=== PATIENT | male | born 1960 | race Caucasian/White ===

== ENCOUNTER → 2017-08-07 07:02 | Outpatient (CLI) | payer BC, SELFPAY ==
--- NOTE | 2017-08-07 16:48 | STRESSREP ---
Stress Test Report Exercise myocardial perfusion stress test. 57-year-old man with a history of chest pain. Stress protocol: The resting EKG demonstrates sinus bradycardia with a rate of 59 bpm. The resting blood pressure is 102/70 mmHg. The patient exercised according to regular Alek protocol for total duration of 10 minutes completing 1 minute into stage IV of the Alek protocol. The maximum heart rate attained was 146 bpm which was 89% of maximum predicted heart rate the maximum workload attained was 11.7 metabolic equivalents. The patient maintained sinus rhythm throughout the recording. At rest there were no ST or T-wave changes noted suggest ischemia at peak exercise no ST or T-wave changes were noted suggest ischemia. No clinical angina was noted the test was terminated due to leg fatigue the resting blood pressure is 102/70 mmHg with a peak blood pressure 134/72 mmHg. Myocardial perfusion protocol. 14.1 mCi of technetium 99m sestamibi was injected at rest. The patient exercised according to regular Alek protocol for 10 minutes attaining 89% of maximum predicted heart rate to work load of 11.7 metabolic equivalents at peak exercise 43.7 mCi of technetium 99m sestamibi was injected stress images were obtained stress and rest images were reconstructed and compared in the short axis vertical and horizontal long axis. Gated images were also obtained pre- Perfusion SPECT analysis. Review of the stress images demonstrate normal uptake of tracer noted in all areas of the myocardium. The resting images similarly demonstrate normal uptake of tracer noted in all areas of the myocardium. No areas of reversibility are noted suggest ischemia no previous infarct is noted. Gated SPECT analysis: The gated ejection fraction is noted to be 62%. Conclusion: Normal exercise myocardial perfusion stress test at a high workload. No clinical angina noted. No arrhythmias noted. Preserved ejection fraction.
== END ==
DX: R07.89 Other chest pain (principal)
CPT/HCPCS: 78452; 93017; A9500; A4216; J2405

== ENCOUNTER 2017-08-16 08:27 | Day surgery (SDC) | payer BC, SELFPAY ==
--- NOTE | 2017-08-16 | MISC_PTH ---
PATIENT: JALEESA TURNER LOC: [facility] – [place] U#:[id number] AGE/SX: 57/M ROOM: RE08/16/[address]: Rusty Cavanaugh MD : 1960 BED: DIS: 08/16/2017 SPEC #: [id number] RECD: 08/16/17 13:19 STATUS: STEVE RAUL #: [id number] MIKAELA: 08/16/17 00:[address]: Rusty Cavanaugh DEPT: SURGICAL PATHOLOGY RECD BY: Bishnu Rae ENTERED: 08/16/17 13:19 SP TYPE: [facility] [place] OTHR DR: Dr. Yadira Cain DO Tissues: A - Epiglottis, NOS B - Vocal cord, NOS Procedures: Special Stain Group I Surgery Specimen Level IV AFB Stain (control) GMS Stain (control) HEADER OPERATION: Suspension microlaryngoscopy, vocal cord stripping PRE-OP DIAGNOSIS: Hoarseness, vocal cord mass TISSUE SUBMITTED: A ? Mucosal biopsy anterior commissure subglottis, B ? Right vocal cord strip MICROSCOPIC DIAGNOSIS A. Anterior commissure subglottis mucosal biopsy: Fragments of benign squamous mucosa and submucosa with minimal chronic inflammation. No evidence of dysplasia or malignancy. B. Right vocal cord, strip, biopsy: Focal mucosal ulceration with associated acute and chronic inflammation and early granulation. No evidence of malignancy. Negative for acid-fast bacilli and fungal organisms. AM:ximena 08/17/17 COMMENT A. The submucosal tissue displays minimal edema and vascular ectasia. B. AFB and GMS stains with matched controls were used in the evaluation of this case. MICROSCOPIC DESCRIPTION Slides are reviewed. GROSS DESCRIPTION A - Received in fixative is one container labeled with the patient's name and designated mucosal biopsy anterior commissure subglottis. The specimen consists of two irregular fragments of light gutierrez soft tissue that in aggregate measure 0.3 x 0.1 x 0.1 cm. The specimen is totally submitted in one cassette. B - Received in fixative is one container labeled with the patient's name and designated right vocal cord strip. The specimen consists of one irregular fragment of light gutierrez soft tissue that measures 0.7 x 0.3 x 0.1 cm. The specimen is totally submitted in one cassette. / JAGDEEP:ximena 08/16/17 TC:2 CPT: 09160 x2, 49950 x2
[2017-08-16 08:56] VITALS: BP 111/67; PULSE 56; RESP 14; TEMP 36.6; O2SAT 93; BMI 29.0
--- NOTE | 2017-08-16 11:00 | PCM.DC ---
You will use the following diet at home:: No restrictions Discharge Activity: Return to Normal Activity - Rest voice for 48 hours with gradual return to regular use Allergies/Adverse Reactions: Allergies No Known Allergies Allergy (Verified 08/14/17 11:10) Medications to take at Discharge Lansoprazole [Prevacid] 15 mg PO BID 03/16/13 Primary Care Physician: Yadira Cain DO [Primary Care Provider] - Please Follow Up With: Rusty Cavanaugh MD - follow up 1-2 weeks, call for appointment [phone]
[2017-08-16 11:08] VITALS: BP 111/67; BP 121/81; PULSE 66; RESP 18; TEMP 36; O2SAT 96
[2017-08-16 11:45] VITALS: BP 111/67; BP 118/72; PULSE 68; RESP 18; TEMP 36.3; O2SAT 95
[2017-08-16 12:14] VITALS: BP 111/67
--- NOTE | 2017-08-16 12:22 | PCM.OP.BLANK ---
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 After the administration of adequate general endotracheal anesthesia the patient was properly positioned on a shoulder roll with head extended. Eyes were treated taped closed and a head drape applied. A dental guard was placed after which the anterior commissure laryngoscope was introduced into the oral cavity advanced down into the hypopharynx and laryngeal area with evaluation of all structures. The epiglottis was omega shaped but exhibited no other pathology. The piriform recesses, and posterior arytenoid regions were clear. The scope was advanced into the laryngeal introitus with examination of the intrinsic larynx. Preoperatively, with fiberoptic examination in office,there had been a large polypoid mass seemingly arising from the anterior aspect of one of the vocal cords, presumably the right, filling the anterior commissure region. At this juncture the only notable pathology was mild polypoid change of the right true vocal cord at its midportion. The patient did report improvement in vocal quality since the office exam. However the anterior tracheal wall at the subglottis region was hyperplastic in its appearance and was slightly erythematous. The operating microscope was used to get closer examination of these areas. The right true vocal cord seemed consistent with the polypoid mass that had been seen in office. However that examination had precluded seeing the subglottic region anteriorly. This subglottic mucosa appeared somewhat irritated, possibly the result of the intubation that had just occurred. Nonetheless this mucosa appeared abnormal and it was felt that a small piece should be taken for biopsy, and this was performed as the right vocal cord was addressed. With benefit of the up-biting forceps the right true vocal cord polypoid region was grasped and just anterior to that, and sufficiently posterior to the commissure, a small cut was made with microscissors and a backward stripping motion was undertaken. This surface tissue was given to the pathologist for permanent section analysis. Again with the benefit of magnification the mucosa of the subglottic region anteriorly was examined and a small fragment of mucosa was grasped with the up-biting forceps for biopsy purposes. A cottonoid pledget soaked in adrenaline solution was placed briefly to vasoconstrict vessels and bring about immediate hemostasis. All areas appeared satisfactory and the laryngoscope was subsequently relaxed and withdrawn. The procedure was then terminated. Patient tolerated the procedure well, did not sustain any intraoperative anesthetic or surgical complication, was extubated in the operating room and taken to the PACU where he was noted to be in satisfactory condition. Rusty Cavanaugh MD
== END 2017-08-16 12:16 | disposition home or self-care (01) ==
LOC: SDC 08:28 → AC 08:29
PROVIDERS: Visit Provider Otolaryngology Otolaryngology/Facial Plastic Surgery
PROC: 0CJS8ZZ Inspection of Larynx, Via Natural or Artificial Opening Endoscopic (ICD-10-PCS; CPT 31575; principal; 2017-08-16 10:00)
DX: D38.0 Neoplasm of uncertain behavior of larynx (principal); R49.0 Dysphonia; F17.201 Nicotine dependence, unspecified, in remission
CPT/HCPCS: 31541; 88305; 88312; J7120; J2405

== ENCOUNTER 2017-09-23 19:01 | Emergency (ER) | payer BC, SELFPAY ==
[2017-09-23 19:02] VITALS: BP 118/67; PULSE 75; RESP 24; TEMP 37.5; O2SAT 98; BMI 28.8
--- NOTE | 2017-09-23 19:13 | EKG12_ITS ---
Test Reason : CP Blood Pressure : / mmHG Vent. Rate : 072 BPM Atrial Rate : 072 BPM P-R Int : 132 ms QRS Dur : 084 ms QT Int : 352 ms P-R-T Axes : 043 -17 025 degrees QTc Int : 385 ms Normal sinus rhythm Low voltage QRS Borderline ECG Confirmed by CONOR DANG, SHIVANI ([id number]), assignment desk editor LESLY DUNNE ([id number]) on 09/26/2017 2:46:30 PM Referred By: WYATT
--- NOTE | 2017-09-23 19:13 | RAD_ITS ---
XR Chest 1 View INDICATION: PT STATED RT SIDED CHEST PAIN WITH COUGH COMPARISON: March 16, 2013 FINDINGS: Heart size and pulmonary vascularity are within normal limits. The lungs are clear without evidence of airspace consolidation or pleural effusion. The osseous structures are grossly unremarkable. RAD/Chest 1 View (Portable) IMPRESSION: No radiographic evidence of acute intrathoracic disease. at 2013 Reported and signed by: Belinda Ritter MD Electronically Signed: Belinda Ritter MD at 20:12 EDT Tel , Service support ,
[2017-09-23 19:19] VITALS: PULSE 74; RESP 27; O2SAT 97
[2017-09-23] MEDS: Aspirin 81 MG TAB.CHEW 324 MG PO (19:20)
[2017-09-23 19:25] LABS: Absolute Lymphocyte Count 0.96 X10^3/ul (0.83-4.51); Absolute Neutrophil Count 4.5 X10^3/uL (2.0-7.7); Basophil# 0.02 X10^3/uL; Basophil% 0.3 % (0-1); Eosinophil# 0.09 X10^3/uL; Eosinophils% 1.5 % (0-5); Hematocrit 43.8 % (40-54); Hemoglobin 15.1 g/dl (13.0-16.5); Lymphocyte # 0.96 X10^3/ul (4.0); Mean Corp Hgb Conc 34.5 g/gl (32-36); Mean Corpuscular Hgb 31.3 pg (27.0-32.0); Mean Corpuscular Volume 90.9 fL (80-94); Monocyte# 0.48 X10^3/uL; Neutrophil # 4.45 X10^3/uL (2.7-7.7); Platelet Count 176 K/mm3 (150-450); RBC Distribution Width CV 14.1 % (11.6-14.6); RBC Distribution Width SD 47.1 fl (35.1-43.9); Red Blood Count 4.82 M/mm3 (4.6-6.2)
[2017-09-23 19:27] LABS: POSITIVE COUNT NO; POSITIVE DIFFERENTIAL NO; POSITIVE MORPHOLOGY NO
[2017-09-23 19:42] LABS: Anion Gap 8 (5-15); BUN 23 mg/dL (7-18); BUN/Creat Ratio 24.3 RATIO (10-20); Calcium,Total 8.8 mg/dL (8.5-10.1); Chloride 110 mmol/L (98-107); Creatinine, Serum 0.94 mg/dL (0.70-1.30); EST Glomerular Filtration Rate 88 mL/min (>60); Est Glom Filt Rate - Afr Amer 106 mL/min (>60); Glucose 96 mg/dL (74-106); Potassium 4.1 mmol/L (3.5-5.1); Sodium Level 142 mmol/L (136-145)
[2017-09-23 20:12] VITALS: BP 104/65; PULSE 66; RESP 21; O2SAT 95
--- NOTE | 2017-09-23 20:43 | ED.VISSUMM ---
- ER Visit Summary Date of Service: 09/23/17 Chief Complaint: Chest pain/cough History of Present Illness: The patient is a 57 M who complains of pain in his chest area. It is on the right side. He describes as sharp. Started today. He has had a cough since yesterday. The cough is been nonproductive. He took [place] today without any relief. He denies any fevers. He is a smoker. He did have a stress test last month that was normal. Physical Examination: Vital signs reviewed. HEENT exam unremarkable. Heart is regular rate and rhythm without murmurs. Lungs are clear to auscultation. Abdomen is soft and nontender. Extremities reveal no edema. Skin exam normal. Neurologic exam normal. Test Results: EKG is normal sinus rhythm with no ST changes. Labs are normal. Chest x-ray unremarkable. Emergency Department Course and Treatment: Patient was given aspirin. Patient likely has some chest wall pain with a viral URI. I will give him naproxen for pain. I will give him Mucinex D for the cough. He will follow-up with his PCP Treatment Plan: [] Disposition: Discharge Impression: Chest wall pain, viral URI with cough This note was generated with [employer] dictation software. It may contain incorrect words, spelling, and punctuation that were not noted in review of the chart prior to signing ED Disposition - Plan for ED Patient: Chief Complaint: Chest Pain Referrals: Yadira Cain DO [Primary Care Provider] -
--- NOTE | 2017-09-23 20:44 | ED.DEP ---
ED Disposition - Plan for ED Patient: Disposition: Home or Assisted Living Chief Complaint: Chest Pain Instructions: ED Chest Pain NonCardiac Prescriptions: Guaifenesin/Pseudoephedrne HCl [Mucinex D ER 1,200-120 mg Tab] 1 ea PO BID #14 tab.er.12h Naproxen [Naprosyn] 500 mg PO BID #20 tab Referrals: Yadira Cain DO [Primary Care Provider] -
[2017-09-23 21:02] VITALS: BP 109/57; PULSE 69; RESP 18; O2SAT 98
== END 2017-09-23 21:03 | disposition home or self-care (01) ==
PROVIDERS: Emergency Provider Emergency Medicine
DX: R07.89 Other chest pain (principal); J06.9 Acute upper respiratory infection, unspecified; R05 Cough; K21.9 Gastro-esophageal reflux disease without esophagitis; F17.200 Nicotine dependence, unspecified, uncomplicated
CPT/HCPCS: 71045; 80048; 84484; 85025; 93005; 99285; A4216

== ENCOUNTER → 2019-04-29 15:04 | Outpatient (CLI) | payer OTHER, SELFPAY | PROVIDERS: Referring Provider Otolaryngology Otolaryngology/Facial Plastic Surgery; Visit Provider Otolaryngology Otolaryngology/Facial Plastic Surgery | DX: J02.9 Acute pharyngitis, unspecified (principal) | CPT/HCPCS: 87070 ==

== ENCOUNTER 2019-10-15 09:59 | Emergency (ER) | payer OTHER, SELFPAY ==
[2019-10-15 10:01] VITALS: BP 120/73; PULSE 67; RESP 19; TEMP 36.6; O2SAT 96; BMI 29.4
--- NOTE | 2019-10-15 10:19 | EKG12_ITS ---
Test Reason : DIZZY Blood Pressure : / mmHG Vent. Rate : 065 BPM Atrial Rate : 065 BPM P-R Int : 154 ms QRS Dur : 086 ms QT Int : 396 ms P-R-T Axes : 055 -12 018 degrees QTc Int : 411 ms Normal sinus rhythm Low voltage QRS (limb leads) Confirmed by CONOR DANG, SHIVANI ([id number]), editor magazine LESLY DUNNE ([id number]) on 10/17/2019 11:09:14 AM Referred By: [place] Confirmed By:SHIVANI PERDOMO MD
--- NOTE | 2019-10-15 10:20 | CT_ITS ---
STUDY: CTA HEAD AND NECK WITH CONTRAST REASON FOR EXAM: Male, 59 years old. DIZZINESS,ACUTE NEURO DEFICIT, NECK PAIN, SOB RADIATION DOSAGE (If Supplied By Facility): CTDIvol = ( 29.41 ) mGy, DLP = ( 2865.79 ) mGycm TECHNIQUE: CT angiography was performed with a multi-detector CT scanner. Data acquisition was obtained from the skull base through the vertex following intravenous administration of 100 CC ISOVUE 370. MIP images were reconstructed from the axial data set. Post-processing of the angiographic images was performed, with multiplanar reformation and 3D reconstruction. Individualized dose optimization techniques were used for this CT. COMPARISON: No relevant priors. FINDINGS: Normal bilateral petrous carotid arteries. Normal right cavernous carotid artery with a normal supraclinoid bifurcation. Normal left cavernous carotid artery with a normal supraclinoid bifurcation. Normal right A1 segments of the anterior cerebral artery. Normal left A1 segments of the anterior cerebral artery. Normal intact anterior communicating artery (ACOM). Normal bilateral A2 segments of the anterior cerebral arteries. Normal right M1 and M2 segments of the middle cerebral arteries, with a normal M1 bifurcation. Normal left M1 and M2 segments of the middle cerebral arteries, with a normal M1 bifurcation. Normal right posterior communicating artery (PCOM). Normal left posterior communicating artery (PCOM). Normal bilateral vertebral arteries. Normal basilar artery with a normal basilar bifurcation. The visualized bilateral superior cerebellar (SCA) arteries are normal. Normal bilateral P1, P2 and visualized P3 segments of the posterior cerebral arteries. There is no demonstrated aneurysm of the [place] of [place]. There is no demonstrated abnormality of the visualized brain. AORTIC ARCH: Normal visualized aortic arch. Normal origins of the brachiocephalic, left common carotid, and left subclavian arteries. RIGHT CAROTID ARTERIES: Normal right common carotid artery (CCA). Normal right common carotid bulb. Normal origin of the right internal carotid (ICA) artery without a hemodynamically significant stenosis. Normal visualized cervical portion of the right internal carotid artery. Normal origin of the right external carotid artery (ECA). LEFT CAROTID ARTERIES: Normal left common carotid artery (CCA). Normal left common carotid bulb. Normal origin of the left internal carotid (ICA) artery without a hemodynamically significant stenosis. Normal visualized cervical portion of the left internal carotid artery. Normal origin of the left external carotid artery (ECA). VERTEBRAL ARTERIES: Normal bilateral vertebral arteries. CT/CTA Head AND Neck W/ Contrast IMPRESSION: Normal CTA Head and neck with contrast. Electronically Signed: Fernando Carlson, at 11:32 EDT , Service support ,
--- NOTE | 2019-10-15 10:20 | CT_ITS ---
STUDY: CTA CHEST REASON FOR EXAM: Male, 59 years old. DIZZINESS,ACUTE NEURO DEFICIT, NECK PAIN, SOB RADIATION DOSAGE (If Supplied By Facility): CTDIvol = ( 29.41 ) mGy, DLP = ( 2865.79 ) mGycm TECHNIQUE: The examination was performed with the intravenous administration of 100 CC ISOVUE 370. Post-processing of the angiographic images was performed, with multiplanar reformation and 3D reconstruction. Individualized dose optimization techniques were used for this CT. COMPARISON: Comparison is made with prior study dated March 16, 2013. FINDINGS: Normal enhancement of the main pulmonary artery and right and left pulmonary arteries. Normal enhancement of the bilateral peripheral pulmonary arteries. There is no demonstrated pulmonary embolism. Normal thoracic aorta and visualized great vessels. There is no demonstrated aortic dissection. Normal heart and pericardium. Normal mediastinum. Normal hilar regions. Normal visualized trachea and bronchi. The lungs are well expanded. Normal pulmonary parenchyma. Normal pleura. Normal chest wall structures. Normal osseous structures. Normal visualized upper abdomen. CT/CTA Chest W/WO Contrast IMPRESSION: Normal CTA chest examination, without a demonstrated pulmonary embolism or arterial dissection. Electronically Signed: Fernando Carlson, at 11:34 EDT , Service support ,
[2019-10-15] MEDS: Morphine 4 MG/ML Syringe IV (10:34)
[2019-10-15] MEDS: Ondansetron 4 MG/2 ML Vial IV (10:34)
[2019-10-15 10:37] LABS: Absolute Lymphocyte Count 1.83 X10^3/uL (0.83-4.51); Absolute Neutrophil Count 3.6 X10^3/uL (2.0-7.7); Basophil# 0.05 X10^3/uL; Basophil% 0.8 % (0-1); Eosinophil# 0.08 X10^3/uL; Eosinophils% 1.3 % (0-5); Hematocrit 48.3 % (40-54); Hemoglobin 16.5 g/dL (13.0-16.5); Lymphocyte # 1.83 X10^3/ul (4.0); Mean Corp Hgb Conc 34.2 g/dL (32-36); Mean Corpuscular Hgb 32.1 pg (27.0-32.0); Mean Platelet Vol. 9.2 fl (6.2-12.0); Monocyte% 8.2 % (0-10); NRBC Flagged by Analyzer 0 % (0-5); Neutrophil # 3.62 X10^3/uL (2.7-7.7); Neutrophil % 59.5 % (47-70); Platelet Count 229 K/mm3 (150-450); RBC Distribution Width SD 51.4 fl (35.1-43.9); Red Blood Count 5.14 M/mm3 (4.6-6.2); White Blood Count 6.1 K/mm3 (4.4-11.0)
[2019-10-15 10:52] LABS: ALB/GLOB Ratio 1.2 RATIO (0.9-2.4); AST(SGOT) 26 U/L (15-37); Alanine Aminotransfer ALT/SGPT 30 U/L (16-61); Albumin, Serum 4.1 g/dL (3.2-5.0); Alkaline Phosphatase 96 U/L (45-117); Anion Gap 4 (5-15); BUN 21 mg/dL (7-18); BUN/Creat Ratio 18.9 RATIO (10-20); Chloride 108 mmol/L (98-107); Creatinine, Serum 1.11 mg/dL (0.70-1.30); EST Glomerular Filtration Rate 72 mL/min (>60); Est Glom Filt Rate - Afr Amer 87 mL/min (>60); Globulin 3.5 g/dL (2.2-4.2); Glucose 96 mg/dL (74-106); Potassium 4.9 mmol/L (3.5-5.1); Protein, Total 7.6 g/dL (6.4-8.2); Sodium Level 138 mmol/L (136-145)
--- NOTE | 2019-10-15 10:55 | ED.DCSUM_ITS ---
History of Present Illness Chief Complaint: Dizziness Narrative: Patient presents with left-sided neck pain that started prior to arrival it is worse to palpation but he has no pain with twisting or bending or movement of the neck. He has no chest pain he has no headache or vision changes he has no back pain or tearing sensation. He has no pleuritic component. He was at work, but this is nontraumatic. Past Medical History - Allergies and Home Meds Allergies/Adverse Reactions: Allergies No Known Allergies Allergy (Verified 10/15/19 10:00) Primary Care Physician: Yadira Cain DO [Primary Care Provider] - Past Medical History: - - GERD Surgical History: - - skin graft RUE, surgery on the R foot, abd surgery as an Smoking Status: Current every day smoker Review of Systems All systems negative except as indicated General: Denies: Fever Eyes: Denies: Visual changes - bilaterally ENT: Reports: - - Neck pain on the left as in HPI Cardiovascular: Denies: Chest pain, Palpitations, Heart racing Respiratory: Denies: Dyspnea, Cough, Sputum Gastrointestinal: Denies: Abdominal pain, Nausea, Vomiting Genitourinary: Denies: Dysuria Musculoskeletal: Reports: Neck pain. Denies: Myalgias, Arthralgias Skin: Denies: Rash Neurological: Denies: Headache, Weakness Psych: Denies: Depression Hematologic: Denies: Easy bruising Physical Exam Vital Signs/Narrative: Vital Signs Temp Pulse Resp BP Pulse Ox 10/15/19 10:01 97.8 F 67 19 H 120/73 96 General: Well nourished, Well developed Head: Normocephalic Eyes: Perrl, EOMI ENT: Moist mucous membranes Neck: Supple, - - Some tenderness over the sternocleidomastoid region, no fullness, no lymphadenopathy, no posterior or C-spine tenderness. Full range of motion of the neck. Cardiovascular: Regular rate, Regular rhythm, No murmurs Respiratory: No distress, CTA bilaterally Abdomen: Soft, Nontender Back: Nontender, Normal Inspection. Negative for: CVA tenderness Extremities: Nontender, No edema Skin: Normal color Neurological: Alert, Oriented x3, Normal Strength Diagnostic/Tx/Re-eval - Rhythm Strip Rhythm Strip: Sinus Rhythm Rate: 65 Ectopy: None - EKG Initial EKG Interpretation: - - Normal sinus rhythm with a rate of 65. Normal MT interval. Normal QTc interval. No ischemic changes. Normal EKG Interpreted by emergency doctor - Medical Decision Making Patient has normal cardiac enzymes and EKG. He has no chest pain, he has reproducible pain at his sternocleidomastoid muscle near the insertion in the sternum. I reevaluated him, his pain did come back however it was all reproducible. As far as his lightheadedness this may be secondary to pain or vagal response. He appears well I will discharge him with symptomatic treatment if anything changes he is to return. ED Disposition - Plan for ED Patient: Disposition: Home or Assisted Living Diagnosis: Muscle strain, Light-headed feeling Instructions: ED Dizziness UKO, Muscle Spasm Prescriptions: Hydrocodone Bitart/Apap 5-325 [[place] 5MG-325MG] 1 tablet PO Q4H PRN PRN 3 Days #12 tablet PRN Reason: Pain Transmission Status: Sent to [employer] #30 Tizanidine HCl 4 mg PO BID PRN #12 tab PRN Reason: Muscle Spasm Transmission Status: Pending to [employer] #30 Referrals: Yadira Cain DO [Primary Care Provider] - 3-5 Days
[2019-10-15 11:04] VITALS: BP 120/81; PULSE 61; RESP 18; O2SAT 99
[2019-10-15 12:06] VITALS: BP 121/78; PULSE 63; RESP 20; O2SAT 97
[2019-10-15] MEDS: oxyCODONE 5 MG Tablet PO (12:32)
== END 2019-10-15 12:36 | disposition home or self-care (01) ==
PROVIDERS: Emergency Provider Emergency Medicine
DX: R42 Dizziness and giddiness (principal); T14.8XXA Other injury of unspecified body region, initial encounter; X58.XXXA Exposure to other specified factors, initial encounter; Y93.9 Activity, unspecified; Y92.89 Other specified places as the place of occurrence of the external cause; Y99.0 Civilian activity done for income or pay; K21.9 Gastro-esophageal reflux disease without esophagitis; F17.200 Nicotine dependence, unspecified, uncomplicated
CPT/HCPCS: 70496; 70498; 71275; 80053; 84484; 85025; 93005; 96374; 96375; 99285; J7040; Q9967; A4216; J2405

== ENCOUNTER 2023-07-19 12:01 | Emergency (ER) | payer OTHER, SELFPAY ==
[2023-07-19 12:01] VITALS: BP 141/82; PULSE 71; RESP 14; TEMP 35.7; O2SAT 99; BMI 31.4
--- NOTE | 2023-07-19 12:20 | ED.VIS.GI ---
HPI <GIACOMO Richey - Last Filed: 07/19/23 15:04> HPI - GI History of Present Illness Chief Complaint: Abd Pain Narrative Narrative: Patient presenting due to sharp and cramping left lower quadrant abdominal pain that he has had constantly since Sunday. He reports that he has had diarrhea and did notice a small amount of bright red blood in his stool as well. He saw his PCP today, Dr. Farnsworth who encouraged him to come in due to concerns for diverticulitis. He does not have any history of this, no history of GI bleed. He reports chills but denies fevers, nausea, vomiting, and urinary symptoms. He reports a history of a esophageal surgery when he was a baby but denies any other abdominal surgery. PFSH <GIACOMO Richey - Last Filed: 07/19/23 15:04> PFS Home Medications lansoprazole 30 mg capsule,delayed release 30 mg PO DAILY 10/15/19 [History Last Taken Unknown] tizanidine 4 mg tablet 4 mg PO BID PRN Muscle Spasm #12 tabs 10/15/19 [Rx Last Taken Unknown] amoxicillin 875 mg-potassium clavulanate 125 mg tablet 1 tab PO BID #19 tabs 07/19/23 [Rx Last Taken Unknown] hydrocodone-acetaminophen 5-325mg 5mg-325mg 1 tab PO Q4H PRN PRN Pain 3 days #8 TABLETS 07/19/23 [Rx Last Taken Unknown] Allergy/AdvReac Type Severity Reaction Status Date / Time No Known Allergies Allergy Verified 07/19/23 12:02 Social History Smoking Status: Current every day smoker tobacco type: cigarettes ROS <GIACOMO Richey - Last Filed: 07/19/23 15:04> ROS ED Constitutional Constitutional ED: Reports chills; Denies fever(s) Cardiovascular Cardiovascular: Denies chest pain Respiratory/Chest Respiratory/Chest: Denies cough or dyspnea Gastrointestinal Gastrointestinal: Reports abdominal pain, diarrhea and hematochezia; Denies constipation, nausea or vomiting Genitourinary Genitourinary ED: Denies dysuria, hematuria or urinary urgency Musculoskeletal Musculoskeletal: Denies arthralgias or myalgias Integumentary Denies rash Neurologic Neurologic: Denies weakness EXAM <GIACOMO Richey - Last Filed: 07/19/23 15:04> Physical Exam Const Vital Signs: 07/19/23 12:01 07/19/23 14:40 07/19/23 14:01 Temperature 96.3 F L 97.8 F 97.8 F Temperature Source Temporal Oral Pulse Rate 71 78 78 Respiratory Rate 14 16 16 Blood Pressure 141/82 H 132/72 H 132/72 H Blood Pressure Mean 101 92 92 Pulse Ox 99 97 97 Oxygen Delivery Method Room Air Room Air Positive well nourished, well developed and no apparent distress General Appearance ED: well developed HEENT Reports normocephalic and head/scalp atraumatic Mouth ED: Yes moist mucous membranes normal Eyes PERRL and EOMs intact bilaterally Neck full ROM and supple Chest Wall inspection of chest normal Resp normal respiratory effort and clear to auscultation bilaterally Cardio regular rate and regular rhythm GI soft to palpation, non-distended and no masses GI Narrative: Left lower quadrant tenderness to palpation, no rigidity, guarding, or peritoneal signs. Negative Sheikh sign, negative McBurney's point tenderness. Back/Spine normal ROM and normal to inspection Extremity normal to inspection and full ROM Neuro oriented x3, CN's II-XII intact bilaterally, moves all extremities, no focal motor deficits and no sensory deficits noted Sensorium / Orientation: awake and alert Psych mental status grossly normal and thought process normal Skin no rashes or lesions noted and no wounds <Dr. Michael Ramirez, - Last Filed: 07/19/23 15:18> Physical Exam Const Vital Signs: 07/19/23 12:01 07/19/23 14:40 07/19/23 14:01 Temperature 96.3 F L 97.8 F 97.8 F Temperature Source Temporal Oral Pulse Rate 71 78 78 Respiratory Rate 14 16 16 Blood Pressure 141/82 H 132/72 H 132/72 H Blood Pressure Mean 101 92 92 Pulse Ox 99 97 97 Oxygen Delivery Method Room Air Room Air MDM <GIACOMO Richey - Last Filed: 07/19/23 15:04> [facility] Narrative Medical decision making narrative: Patient presenting with left lower quadrant abdominal pain, diarrhea, and an episode of blood in his stool. Symptoms started on Sunday, no history of diverticulitis, he is tender in his left lower quadrant. He is well-appearing and in no acute distress. He will be given IV fluids, analgesia and labs will be obtained to rule out leukocytosis, anemia, electrolyte abnormality, KELY, pancreatitis, and hepatobiliary etiology. CT scan of the abdomen and pelvis will be obtained to rule out diverticulitis, kidney stone, bowel obstruction, appendicitis, and other etiology. CT scan shows acute uncomplicated sigmoid diverticulitis. He will be treated with Augmentin with first dose here. On reexamination he reports improvement of his abdominal pain. He does have a prescription already for [place] that he was given for a left knee arthroplasty that was performed recently, he reports that he has plenty left and does not need additional pain meds for home. He will be discharged home in stable condition and is comfortable with plan. Return instructions given. He is to follow-up with PCP. Lab Data Attestation: I reviewed the patient's lab results. Lab results narrative: BUN 22 Labs: Laboratory Results - last 24 hr 07/19/23 12:51 WBC 9.1 RBC 5.25 Hgb 16.5 Hct 48.2 MCV 91.8 MCH 31.4 MCHC 34.2 RDW Std Deviation 49.0 H RDW Coeff of Johnnie 14.5 Plt Count 256 MPV 8.9 Immature Gran % (Auto) 0.300 Neut % (Auto) 69.8 Lymph % (Auto) 20.4 Archer % (Auto) 7.9 Eos % (Auto) 0.9 Baso % (Auto) 0.7 Absolute Neuts (auto) 6.3 Absolute Lymphs (auto) 1.85 Nucleated RBC % 0 Sodium 137 Potassium 4.2 Chloride 108 H Carbon Dioxide 23.0 Anion Gap 6 BUN 22 H Creatinine 1.07 Estim Creat Clear Calc 84.52 Est GFR (MDRD) Af Amer 90 Est GFR (MDRD) Non-Af 74 BUN/Creatinine Ratio 20.6 H Glucose 89 Calcium 8.8 Total Bilirubin 0.90 AST 17 ALT 42 Alkaline Phosphatase 83 Total Protein 7.1 Albumin 3.6 Globulin 3.5 Albumin/Globulin Ratio 1.0 Lipase 30 Radiography Diagnostic Testing: Clinical Impression(s) from Imaging Studies Abdomen/Pelvis CT 07/19/23 13:42 IMPRESSION: Mild degree of noncomplicated acute sigmoid diverticulitis. Fatty infiltration of the liver. Electronically Signed: Fernando Carlson MD at 14:09 EDT , <Dr. Michael Ramirez, DO - Last Filed: 07/19/23 15:18> [facility] Lab Data Labs: Laboratory Results - last 24 hr 07/19/23 12:51 WBC 9.1 RBC 5.25 Hgb 16.5 Hct 48.2 MCV 91.8 MCH 31.4 MCHC 34.2 RDW Std Deviation 49.0 H RDW Coeff of Johnnie 14.5 Plt Count 256 MPV 8.9 Immature Gran % (Auto) 0.300 Neut % (Auto) 69.8 Lymph % (Auto) 20.4 Archer % (Auto) 7.9 Eos % (Auto) 0.9 Baso % (Auto) 0.7 Absolute Neuts (auto) 6.3 Absolute Lymphs (auto) 1.85 Nucleated RBC % 0 Sodium 137 Potassium 4.2 Chloride 108 H Carbon Dioxide 23.0 Anion Gap 6 BUN 22 H Creatinine 1.07 Estim Creat Clear Calc 84.52 Est GFR (MDRD) Af Amer 90 Est GFR (MDRD) Non-Af 74 BUN/Creatinine Ratio 20.6 H Glucose 89 Calcium 8.8 Total Bilirubin 0.90 AST 17 ALT 42 Alkaline Phosphatase 83 Total Protein 7.1 Albumin 3.6 Globulin 3.5 Albumin/Globulin Ratio 1.0 Lipase 30 Radiography Diagnostic Testing: Clinical Impression(s) from Imaging Studies Abdomen/Pelvis CT 07/19/23 13:42 IMPRESSION: Mild degree of noncomplicated acute sigmoid diverticulitis. Fatty infiltration of the liver. Electronically Signed: Fernando Carlson MD at 14:09 EDT , Treatment and Re-Evaluation :: I have personally performed a face to face assessment of the patient and have reviewed the BEN Note. I performed a substantive portion of the visit including all aspects of the following. My weiss findings include: History: Patient presents with abdominal pain and diarrhea that has been constant for the past 5 days. Patient states it began rather suddenly. Patient describes the pain as sharp, aching, and cramping. Patient states the pain is mainly over the left lower abdomen. Patient states that radiates into the suprapubic area. Patient states nothing makes it better and nothing makes it worse. Patient denies any fevers or chills. Patient denies any nausea or vomiting. Patient admits to some diarrhea. Patient states he had some blood in his bowel movement today. Exam: Vital signs are stable. Patient is afebrile. Patient is in no acute distress. Oral mucosa is pink and moist. Neck is supple. Trachea is midline. There is no JVD. Heart was regular rate and rhythm. Lungs are clear and equal bilaterally. Abdomen is soft. Bowel sounds are normal. There is left lower quadrant and mild suprapubic tenderness. There is no rebound or guarding noted. Cranial nerves II through XII are intact. There are no focal motor or sensory deficits noted. Medical Decision Making: Differential diagnosis includes diverticulitis, bowel obstruction, perforation, ureteral calculus, urinary tract infection, pyelonephritis, and gastroenteritis. CBC will be obtained to assess for leukocytosis and anemia. Comprehensive metabolic profile will be obtained to assess for hepatic function, renal function, and electrolyte abnormality. Lipase will be obtained to assess for pancreatitis. CT scan of the abdomen pelvis will be obtained to assess for diverticulitis, bowel obstruction, and perforation. CBC was reviewed and was within normal limits. Comprehensive metabolic profile was reviewed. BUN was slightly elevated at 22. Creatinine was normal at 1.07. Electrolytes were normal. Anion gap was normal. LFTs were normal. Lipase was reviewed and was normal at 30. CT scan of the abdomen pelvis was obtained. There is evidence of diverticulitis. There is no obstruction or perforation noted. This was interpreted by the radiologist was also independently reviewed by myself. Patient was advised of his findings. Patient was given a dose of Augmentin here. Patient was given a prescription for Augmentin. Patient was instructed to follow-up with his primary care physician in 5 to 7 days. Patient understood and was agreeable with the plan. All questions were answered. Discharge Plan Triage Chief Complaint: Abd Pain ED Midlevel Provider: Shira Delarosa ED Provider: Michael Ramirez Dx/Rx/DC Orders Clinical Impression: Diverticulitis Instructions: Diverticulitis Dc Prescriptions: New amoxicillin-pot clavulanate 875-125 mg tablet 1 tab PO BID Qty: 19 0RF hydrocodone-acetaminophen 5-325 mg tablet 1 tab PO Q4H PRN PRN (Reason: Pain) 3 Days Qty: 8 0RF No Action lansoprazole 30 MG capsule 30 mg PO DAILY tizanidine 4 MG tablet 4 mg PO BID PRN (Reason: Muscle Spasm) Qty: 12 0RF Primary Care Provider: Thomas Montes Referrals: Yadira Cain DO [Non-Staff] - 5-7 Days Activity Restrictions/Additional Instructions: Follow-up with your PCP and return for any worsening of your symptoms. Disposition Disposition: Home, Self Care Discharge Date/Time: 07/19/23 14:51
[2023-07-19 12:56] LABS: Absolute Lymphocyte Count 1.85 X10^3/uL (0.83-4.51); Absolute Neutrophil Count 6.3 X10^3/uL (2.0-7.7); Basophil# 0.06 X10^3/uL; Basophil% 0.7 % (0-1); Eosinophil# 0.08 X10^3/uL; Eosinophils% 0.9 % (0-5); Hematocrit 48.2 % (40-54); Hemoglobin 16.5 g/dL (13.0-16.5); Lymphocyte # 1.85 X10^3/ul (0.83-4.51); Lymphocyte % 20.4 % (19-41); Mean Corp Hgb Conc 34.2 g/dL (32-36); Mean Corpuscular Hgb 31.4 pg (27.0-32.0); Mean Corpuscular Volume 91.8 fL (80-94); Mean Platelet Vol. 8.9 fl (6.2-12.0); Monocyte# 0.72 X10^3/uL; Monocyte% 7.9 % (0-10); NRBC Flagged by Analyzer 0 % (0-5); Neutrophil # 6.32 X10^3/uL (2.7-7.7); Neutrophil % 69.8 % (47-70); Platelet Count 256 K/mm3 (150-450); RBC Distribution Width CV 14.5 % (11.6-14.6); Red Blood Count 5.25 M/mm3 (4.6-6.2); White Blood Count 9.1 K/mm3 (4.4-11.0)
[2023-07-19] MEDS: 0.9% Normal Saline (1000mL) 1,000 ML 1000 ML IV (13:00)
[2023-07-19] MEDS: Ketorolac 15 MG/ML Vial IV (13:01)
[2023-07-19 13:11] LABS: AST(SGOT) 17 U/L (15-37); Alanine Aminotransfer ALT/SGPT 42 U/L (16-61); Albumin, Serum 3.6 g/dL (3.2-5.0); Alkaline Phosphatase 83 U/L (45-117); Anion Gap 6 (5-15); BUN 22 mg/dL (7-18); BUN/Creat Ratio 20.6 RATIO (10-20); Calcium,Total 8.8 mg/dL (8.5-10.1); Chloride 108 mmol/L (98-107); Creatinine, Serum 1.07 mg/dL (0.70-1.30); EST Glomerular Filtration Rate 74 mL/min (>60); Est Glom Filt Rate - Afr Amer 90 mL/min (>60); Estimated Creatinine Clearance 84.52 ml/min; Globulin 3.5 g/dL (2.2-4.2); Glucose 89 mg/dL (74-106); Lipase 30 U/L (13-75); Potassium 4.2 mmol/L (3.5-5.1); Protein, Total 7.1 g/dL (6.4-8.2); Sodium Level 137 mmol/L (136-145)
--- NOTE | 2023-07-19 13:42 | CT_ITS ---
STUDY: CT ABDOMEN AND PELVIS WITH CONTRAST REASON FOR EXAM: Male, 63 years old. LLQ pain RADIATION DOSAGE (If Supplied By Facility): CTDIvol = ( 18.71 ) mGy, DLP = ( 1167.26 ) mGycm TECHNIQUE: Transaxial images were obtained from the dome of the diaphragm to the symphysis pubis without oral contrast. IV 100mL Isovue-370 was administered. Sagittal and coronal images were reconstructed. Individualized dose optimization techniques were used for this CT. COMPARISON: None. FINDINGS: The visualized lung bases are unremarkable. The visualized portions of the heart are within normal limits. There is decreased attenuation of the liver consistent with steatosis. Normal gallbladder and extrahepatic biliary system. Normal spleen. Normal pancreas. Normal bilateral adrenal glands. Normal right kidney. There is a 2.2 cm x 2.2 cm cyst in the upper pole of the left kidney. Normal visualized stomach. Normal small intestine. There is diverticulosis, with thickening of the colon wall, and pericolonic inflammation changes consistent with acute diverticulitis. The appendix is visualized and appears normal. Normal abdominal aorta. Normal inferior vena cava. Normal retroperitoneum. Normal urinary bladder. There is a left-sided inguinal hernia containing adipose tissue. 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 Mild degenerative changes. CT/Abdomen/Pelvis W IV Cont ONLY IMPRESSION: Mild degree of noncomplicated acute sigmoid diverticulitis. Fatty infiltration of the liver. Electronically Signed: Fernando Carlson MD at 14:09 EDT ,
[2023-07-19 14:01] VITALS: BP 132/72; PULSE 78; RESP 16; TEMP 36.6; O2SAT 97
[2023-07-19] MEDS: Amox/Clavulanate 875 MG Tablet PO (14:37)
[2023-07-19 14:40] VITALS: BP 132/72; PULSE 78; RESP 16; TEMP 36.6; O2SAT 97
== END 2023-07-19 14:51 | disposition home or self-care (01) ==
PROVIDERS: Physician Assistant; Emergency Provider Emergency Medicine; PCP Internal Medicine; Visit Provider Emergency Medicine
DX: K57.32 Diverticulitis of large intestine without perforation or abscess without bleeding (principal); F17.210 Nicotine dependence, cigarettes, uncomplicated
CPT/HCPCS: 74177; 80053; 83690; 85025; 96361; 96374; 99284; J7030; Q9967; A4216